=== PATIENT | female | born 1940 | race Two or more races ===

== ENCOUNTER → 2019-12-26 | Outpatient (CLI) | payer OTHER ==
[2019-12-26 10:08] LABS: Basophils # (auto) 0 10 ^3/uL (0-0.2); Basophils % (auto) 0.8 % (0.0-2.0); Eosinophils # (auto) 0.1 10 ^3/uL (0-0.8); Eosinophils % (auto) 1.9 % (0.0-7.0); Hematocrit 36.2 % (36.0-46.0); Hemoglobin 12.4 g/dL (12.2-16.2); Lymphocytes % (auto) 40.6 % (10.0-50.0); Mean Corpuscular Hemoglobin 31.1 pg (28.0-32.0); Mean Corpuscular Hgb Conc. 34.3 g/dL (32.0-36.0); Mean Corpuscular Volume 90.6 fL (80.0-100.0); Monocytes # (auto) 0.4 10 ^3/uL (0-1.3); Monocytes % (auto) 8.4 % (0.0-12.0); Neutrophils # (auto) 2.4 10 ^3/uL (1.6-8.6); Neutrophils % (auto) 48.3 % (37.0-80.0); Nucleated Red Blood Cells % 0.1 %; Platelet Count (auto) 224 10^3/uL (140-450); Red Blood Cells 3.99 10^6/uL (4.0-5.20); Red Cell Distribution Width 13.8 % (11.8-14.3)
[2019-12-26 10:39] LABS: Albumin 3.4 g/dL (3.4-5.0); Calcium 8.9 mg/dL (8.5-10.1); Potassium 4.2 mmol/L (3.5-5.1)
[2019-12-26 10:44] LABS: BUN/Creatinine Ratio 15.1; Bilirubin, Total 0.7 mg/dL (0.2-1.0); Total Protein 7.6 g/dL (6.4-8.2)
[2019-12-28 09:13] LABS: Hepatitis B Surface Antibody Negative
[2019-12-28 09:46] LABS: Hepatitis A Total Antibody Positive
[2019-12-28 09:58] LABS: Hepatitis A Ab IgM Negative
[2019-12-28 09:59] LABS: Hepatitis B Core IgM Negative; Hepatitis B Core Total AB Negative; Hepatitis B Surface Antigen Negative (Negative); Hepatitis C Antibody Negative (Negative)
== END | disposition home or self-care (01) ==
LOC: LAB 09:36
PROVIDERS: ATTEND Internal Medicine
DX: Z92.89 Personal history of other medical treatment (principal)
CPT/HCPCS: 36415; 80053; 80061; 84439; 84443; 85025; 85652; 86704; 86705; 86706; 86708; 86709; 86803; 87340

== ENCOUNTER → 2020-01-24 | Outpatient (CLI) | payer OTHER ==
[2020-01-24 12:20] LABS: Urine Bacteria NONE SEEN /hpf (None Seen); Urine Blood Negative /uL (Negative); Urine Hyaline Cast FEW /lpf (0 - 2); Urine Mucus FEW (None Seen); Urine WBC <1 /hpf (0 - 5)
== END | disposition home or self-care (01) ==
LOC: LAB 12:09
PROVIDERS: ATTEND Internal Medicine
DX: Z09 Encounter for follow-up examination after completed treatment for conditions other than malignant neoplasm (principal); Z92.89 Personal history of other medical treatment
CPT/HCPCS: 81001

== ENCOUNTER 2020-06-13 14:16 | Emergency (ER) | payer OTHER ==
[~2020-06-13] VITALS: Ht 157.5 cm; Wt 72.6 kg
[2020-06-13] MEDS ORDERED: traMADol HCL 50 MG TAB PO ONE (15:45)
[2020-06-13 16:47] VITALS: BP 154/67
== END 2020-06-13 16:52 | disposition home or self-care (01) ==
LOC: ER 14:16
DX: M79.604 Pain in right leg (principal); R22.41 Localized swelling, mass and lump, right lower limb; I12.9 Hypertensive chronic kidney disease with stage 1 through stage 4 chronic kidney disease, or unspecified chronic kidney disease; N18.9 Chronic kidney disease, unspecified; J44.9 Chronic obstructive pulmonary disease, unspecified; E78.00 Pure hypercholesterolemia, unspecified; Z90.89 Acquired absence of other organs; Z90.49 Acquired absence of other specified parts of digestive tract; Z98.890 Other specified postprocedural states; Z87.891 Personal history of nicotine dependence
CPT/HCPCS: 93971

== ENCOUNTER → 2020-12-16 | Outpatient (CLI) | payer OTHER ==
[2020-12-16 10:54] LABS: Basophils # (auto) 0 10 ^3/uL (0-0.2); Basophils % (auto) 0.6 % (0.0-2.0); Eosinophils # (auto) 0.1 10 ^3/uL (0-0.8); Eosinophils % (auto) 2.4 % (0.0-7.0); Hematocrit 34.1 % (36.0-46.0); Hemoglobin 11.7 g/dL (12.2-16.2); Lymphocytes # (auto) 1.8 10 ^3/uL (0.4-5.4); Lymphocytes % (auto) 35.2 % (10.0-50.0); Mean Corpuscular Hemoglobin 30.6 pg (28.0-32.0); Mean Corpuscular Hgb Conc. 34.5 g/dL (32.0-36.0); Mean Corpuscular Volume 88.9 fL (80.0-100.0); Monocytes # (auto) 0.4 10 ^3/uL (0-1.3); Monocytes % (auto) 7.2 % (0.0-12.0); Neutrophils # (auto) 2.8 10 ^3/uL (1.6-8.6); Neutrophils % (auto) 54.6 % (37.0-80.0); Nucleated Red Blood Cells % 0.1 %; Platelet Count (auto) 252 10^3/uL (140-450); Red Blood Cells 3.83 10^6/uL (4.0-5.20); Red Cell Distribution Width 13.8 % (11.8-14.3); White Blood Cell 5.2 10^3/uL (4.4-10.8)
[2020-12-16 10:59] LABS: Urine Bacteria NONE SEEN /hpf (None Seen); Urine Blood Negative /uL (Negative); Urine Specific Gravity 1.016 (1.001-1.035); Urine WBC 1 /hpf (0 - 5)
[2020-12-16 11:45] LABS: Potassium 4.1 mmol/L (3.5-5.1)
[2020-12-16 12:05] LABS: Albumin 3.4 g/dL (3.4-5.0); BUN/Creatinine Ratio 15.8; Bilirubin, Total 0.5 mg/dL (0.2-1.0); Calcium 9.5 mg/dL (8.5-10.1); Total Protein 7.2 g/dL (6.4-8.2)
[2020-12-16 12:16] LABS: Free T4 (Free Thyroxine) 1.62 ng/dL (0.89-1.76)
== END | disposition home or self-care (01) ==
LOC: LAB 09:51
PROVIDERS: ATTEND Internal Medicine
DX: I10 Essential (primary) hypertension (principal); M25.50 Pain in unspecified joint
CPT/HCPCS: 36415; 80053; 80061; 81001; 82607; 84439; 84443; 84550; 85025; 85652; 86038; 86200; 86431

== ENCOUNTER → 2022-07-07 | Outpatient (CLI) | payer OTHER ==
[2022-07-07 13:14] LABS: Basophils # (auto) 0.1 10 ^3/uL (0-0.2); Basophils % (auto) 1.2 % (0.0-2.0); Eosinophils # (auto) 0.1 10 ^3/uL (0-0.8); Eosinophils % (auto) 1.5 % (0.0-7.0); Hemoglobin 11.4 g/dL (12.2-16.2); Lymphocytes # (auto) 1.5 10 ^3/uL (0.4-5.4); Lymphocytes % (auto) 33.2 % (10.0-50.0); Mean Corpuscular Hemoglobin 30.5 pg (28.0-32.0); Mean Corpuscular Hgb Conc. 33.6 g/dL (32.0-36.0); Mean Corpuscular Volume 90.8 fL (80.0-100.0); Monocytes # (auto) 0.3 10 ^3/uL (0-1.3); Monocytes % (auto) 7.2 % (0.0-12.0); Neutrophils # (auto) 2.5 10 ^3/uL (1.6-8.6); Neutrophils % (auto) 56.9 % (37.0-80.0); Red Blood Cells 3.74 10^6/uL (4.0-5.20); Red Cell Distribution Width 13.9 % (11.8-14.3); White Blood Cell 4.4 10^3/uL (4.4-10.8)
[2022-07-07 13:41] LABS: Albumin 2.9 g/dL (3.4-5.0); Calcium 9.4 mg/dL (8.5-10.1); Potassium 4.2 mmol/L (3.5-5.1); Uric Acid 4.4 mg/dL (2.6-6.0)
[2022-07-07 13:44] LABS: BUN/Creatinine Ratio 12.1; Bilirubin, Total 0.5 mg/dL (0.2-1.0); Total Protein 7.5 g/dL (6.4-8.2)
[2022-07-07 15:00] LABS: Free T4 (Free Thyroxine) 1.38 ng/dL (0.89-1.76)
[2022-07-07 15:01] LABS: Folate (Folic Acid) 18.98 ng/mL (5.38-24)
[2022-07-08 06:06] LABS: RPR Non Reactive (Non Reactive)
[2022-07-08 13:35] LABS: Urine Bacteria NONE SEEN /hpf (None Seen); Urine Blood Negative /uL (Negative); Urine Specific Gravity 1.011 (1.001-1.035); Urine WBC 1 /hpf (0 - 5)
== END | disposition home or self-care (01) ==
LOC: LAB 12:09
PROVIDERS: ATTEND Internal Medicine
DX: J44.9 Chronic obstructive pulmonary disease, unspecified (principal)
CPT/HCPCS: 36415; 80053; 80061; 81001; 82607; 82746; 84439; 84443; 84550; 85025; 85652; 86200; 86431; 86592

== ENCOUNTER → 2022-09-29 | Outpatient (CLI) | payer OTHER ==
[2022-09-29 16:10] LABS: Basophils # (auto) 0 10 ^3/uL (0-0.2); Basophils % (auto) 0.8 % (0.0-2.0); Eosinophils # (auto) 0.1 10 ^3/uL (0-0.8); Eosinophils % (auto) 1.9 % (0.0-7.0); Hematocrit 32.6 % (36.0-46.0); Lymphocytes # (auto) 1.5 10 ^3/uL (0.4-5.4); Lymphocytes % (auto) 33.4 % (10.0-50.0); Mean Corpuscular Hemoglobin 29.9 pg (28.0-32.0); Mean Corpuscular Hgb Conc. 33.7 g/dL (32.0-36.0); Mean Corpuscular Volume 88.8 fL (80.0-100.0); Monocytes # (auto) 0.4 10 ^3/uL (0-1.3); Monocytes % (auto) 9.5 % (0.0-12.0); Neutrophils # (auto) 2.5 10 ^3/uL (1.6-8.6); Neutrophils % (auto) 54.4 % (37.0-80.0); Nucleated Red Blood Cells % 0.1 %; Red Blood Cells 3.67 10^6/uL (4.0-5.20); Red Cell Distribution Width 14.7 % (11.8-14.3); White Blood Cell 4.5 10^3/uL (4.4-10.8)
[2022-09-29 16:50] LABS: Thyroid Stimulating Hormone 0.02 uIU/mL (0.358-3.74)
[2022-09-29 17:00] LABS: Free T4 (Free Thyroxine) 1.99 ng/dL (0.89-1.76)
== END | disposition home or self-care (01) ==
LOC: LAB 15:54
PROVIDERS: ATTEND Internal Medicine
DX: I10 Essential (primary) hypertension (principal); D64.9 Anemia, unspecified
CPT/HCPCS: 36415; 82607; 83540; 83550; 83615; 84439; 84443; 85025

== ENCOUNTER 2023-01-28 12:35 | Inpatient (IN) | payer OTHER ==
[~2023-01-28] VITALS: Ht 157.5 cm; Wt 65.7 kg
[2023-01-28] MEDS ORDERED: MORPHINE SULFATE INJ 2 MG/ml SYRG IV PRN ×2 (15:15)
[2023-01-28] MEDS ORDERED: ONDANSETRON HCL 4 MG/2 ML VIAL IV PRN (15:15)
[2023-01-28] MEDS ORDERED: NITROGLYCERIN 0.4 MG SL TAB SL PRN (15:15)
[2023-01-28 16:18] LABS: INR 0.98 (0.9-1.15)
[2023-01-28 16:53] LABS: Basophils # (auto) 0 10 ^3/uL (0-0.2); Basophils % (auto) 0.2 % (0.0-2.0); Eosinophils # (auto) 0.1 10 ^3/uL (0-0.8); Eosinophils % (auto) 0.9 % (0.0-7.0); Hematocrit 26.9 % (36.0-46.0); Hemoglobin 9.2 g/dL (12.2-16.2); Lymphocytes # (auto) 1.7 10 ^3/uL (0.4-5.4); Lymphocytes % (auto) 26.2 % (10.0-50.0); Mean Corpuscular Hemoglobin 28.4 pg (28.0-32.0); Mean Corpuscular Hgb Conc. 34.4 g/dL (32.0-36.0); Mean Corpuscular Volume 82.4 fL (80.0-100.0); Monocytes # (auto) 0.7 10 ^3/uL (0-1.3); Monocytes % (auto) 10.7 % (0.0-12.0); Nucleated Red Blood Cells % 0.3 %; Red Blood Cells 3.26 10^6/uL (4.0-5.20); Red Cell Distribution Width 15.7 % (11.8-14.3); White Blood Cell 6.4 10^3/uL (4.4-10.8)
[2023-01-28 19:43] LABS: Basophils # (auto) 0 10 ^3/uL (0-0.2); Basophils % (auto) 0.5 % (0.0-2.0); Eosinophils # (auto) 0.1 10 ^3/uL (0-0.8); Eosinophils % (auto) 1.1 % (0.0-7.0); Lymphocytes # (auto) 1.6 10 ^3/uL (0.4-5.4); Lymphocytes % (auto) 21.2 % (10.0-50.0); Mean Corpuscular Hemoglobin 27.6 pg (28.0-32.0); Mean Corpuscular Hgb Conc. 33.3 g/dL (32.0-36.0); Mean Corpuscular Volume 82.9 fL (80.0-100.0); Monocytes # (auto) 0.6 10 ^3/uL (0-1.3); Monocytes % (auto) 7.6 % (0.0-12.0); Neutrophils # (auto) 5.4 10 ^3/uL (1.6-8.6); Neutrophils % (auto) 69.6 % (37.0-80.0); Nucleated Red Blood Cells % 0.1 %; Red Blood Cells 3.61 10^6/uL (4.0-5.20); Red Cell Distribution Width 15.7 % (11.8-14.3); White Blood Cell 7.7 10^3/uL (4.4-10.8)
[2023-01-28] MEDS: HEPARIN DRIP/D5W 100UNITS/ML 250 ML IV SCH (19:43)
[2023-01-28 19:44] LABS: Urine Bacteria NONE SEEN /hpf (None Seen); Urine Blood Negative /uL (Negative); Urine Specific Gravity 1.015 (1.001-1.035); Urine WBC 14 /hpf (0 - 5)
[2023-01-28 19:59] LABS: INR 0.97 (0.9-1.15)
[2023-01-28 20:00] VITALS: BP 147/79
[2023-01-28] MEDS: GABAPENTIN 300 MG CAP PO SCH (21:13)
[2023-01-28] MEDS ORDERED: APIXABAN 5 MG TAB PO SCH ×2 (22:00)
[2023-01-29 02:14] LABS: INR 0.99 (0.9-1.15); Partial Thromboplastin Time 50.4 sec (24.6-33.4)
[2023-01-29 05:00] VITALS: BP 154/64
[2023-01-29 05:38] LABS: Basophils # (auto) 0 10 ^3/uL (0-0.2); Basophils % (auto) 0.3 % (0.0-2.0); Eosinophils # (auto) 0 10 ^3/uL (0-0.8); Eosinophils % (auto) 0.5 % (0.0-7.0); Hematocrit 29.4 % (36.0-46.0); Hemoglobin 9.8 g/dL (12.2-16.2); Lymphocytes # (auto) 1.2 10 ^3/uL (0.4-5.4); Lymphocytes % (auto) 15.1 % (10.0-50.0); Mean Corpuscular Hemoglobin 27.5 pg (28.0-32.0); Mean Corpuscular Hgb Conc. 33.2 g/dL (32.0-36.0); Mean Corpuscular Volume 82.7 fL (80.0-100.0); Monocytes # (auto) 0.7 10 ^3/uL (0-1.3); Monocytes % (auto) 8.9 % (0.0-12.0); Neutrophils # (auto) 5.9 10 ^3/uL (1.6-8.6); Neutrophils % (auto) 75.2 % (37.0-80.0); Nucleated Red Blood Cells % 0.1 %; Red Blood Cells 3.56 10^6/uL (4.0-5.20); Red Cell Distribution Width 15.6 % (11.8-14.3); White Blood Cell 7.8 10^3/uL (4.4-10.8)
[2023-01-29 05:42] LABS: % Iron Saturation 5.8 % (15-50)
[2023-01-29 05:45] LABS: Albumin 2.4 g/dL (3.4-5.0); Calcium 8.8 mg/dL (8.5-10.1)
[2023-01-29 05:51] LABS: BUN/Creatinine Ratio 17.3 (10.0-20.0); Bilirubin, Total 0.6 mg/dL (0.2-1.0)
[2023-01-29] MEDS: GABAPENTIN 300 MG CAP PO SCH ×3 (06:21→21:30)
[2023-01-29] MEDS ORDERED: LEVOTHYROXINE SODIUM 50 MCG TAB PO SCH (07:00)
[2023-01-29 11:18] LABS: INR 1.02 (0.9-1.15)
[2023-01-29 12:00] VITALS: BP 129/57
[2023-01-29 14:52] LABS: INR 1.03 (0.9-1.15); Partial Thromboplastin Time 54.7 sec (24.6-33.4)
[2023-01-29] MEDS: HEPARIN DRIP/D5W 100UNITS/ML 250 ML IV SCH (15:29)
[2023-01-29 16:00] VITALS: BP 122/58
[2023-01-29] MEDS: HYDROcodone-ACET 5/325MG TAB PO PRN (18:49)
[2023-01-29 20:00] VITALS: BP 114/57
[2023-01-29 22:00] VITALS: BP 114/57
[2023-01-29] MEDS ORDERED: cefTRIAXone 1GM/50ML D5W 50 ML IV ONE (23:30)
[2023-01-30 05:04] VITALS: BP 143/75
[2023-01-30 05:39] LABS: Basophils # (auto) 0.1 10 ^3/uL (0-0.2); Basophils % (auto) 0.6 % (0.0-2.0); Eosinophils # (auto) 0 10 ^3/uL (0-0.8); Eosinophils % (auto) 0.3 % (0.0-7.0); Hematocrit 33.2 % (36.0-46.0); Hemoglobin 11.1 g/dL (12.2-16.2); Lymphocytes # (auto) 1.3 10 ^3/uL (0.4-5.4); Lymphocytes % (auto) 12.9 % (10.0-50.0); Mean Corpuscular Hemoglobin 27.8 pg (28.0-32.0); Mean Corpuscular Hgb Conc. 33.4 g/dL (32.0-36.0); Mean Corpuscular Volume 83.3 fL (80.0-100.0); Monocytes # (auto) 1.1 10 ^3/uL (0-1.3); Monocytes % (auto) 10.4 % (0.0-12.0); Neutrophils # (auto) 7.7 10 ^3/uL (1.6-8.6); Neutrophils % (auto) 75.8 % (37.0-80.0); Nucleated Red Blood Cells % 0.1 %; Red Blood Cells 3.99 10^6/uL (4.0-5.20); Red Cell Distribution Width 15.4 % (11.8-14.3); White Blood Cell 10.2 10^3/uL (4.4-10.8)
[2023-01-30 05:53] LABS: INR 1.04 (0.9-1.15); Partial Thromboplastin Time 68.9 sec (24.6-33.4)
[2023-01-30 05:55] LABS: Potassium 4.4 mmol/L (3.5-5.1)
[2023-01-30] MEDS: GABAPENTIN 300 MG CAP PO SCH (06:08)
[2023-01-30] MEDS: LEVOTHYROXINE SODIUM 112 MCG TAB PO SCH (06:08)
[2023-01-30] MEDS: LEVOTHYROXINE SODIUM 25 MCG TAB PO SCH (06:08)
[2023-01-30 06:13] LABS: BUN/Creatinine Ratio 13.9 (10.0-20.0); Calcium 8.5 mg/dL (8.5-10.1)
[2023-01-30] MEDS ORDERED: IOHEXOL 300 MG/ML 100ML BOTTLE IJ ONE (08:32)
[2023-01-30 09:00] VITALS: BP 120/51
[2023-01-30] MEDS ORDERED: cefTRIAXone 1GM/50ML D5W 50 ML IV SCH ×2 (09:00→12:00)
[2023-01-30] MEDS: HYDROcodone-ACET 5/325MG TAB PO PRN ×2 (11:29→19:21)
[2023-01-30 13:00] VITALS: BP 109/55
[2023-01-30 16:45] VITALS: BP 108/57
[2023-01-30] MEDS: SODIUM CHLORIDE 0.9% 1,000 ML IV SCH (17:30)
[2023-01-30] MEDS: HEPARIN DRIP/D5W 100UNITS/ML 250 ML IV SCH (17:30)
[2023-01-30] MEDS ORDERED: levoFLOXacin 500MG 100 ML IV ONE (18:45)
[2023-01-30 22:00] VITALS: BP 109/57
[2023-01-31] MEDS: SODIUM CHLORIDE 0.9% 1,000 ML IV SCH ×2 (04:25→21:05)
[2023-01-31 05:00] VITALS: BP 122/49
[2023-01-31 05:31] LABS: Basophils # (auto) 0 10 ^3/uL (0-0.2); Basophils % (auto) 0.2 % (0.0-2.0); Eosinophils # (auto) 0.2 10 ^3/uL (0-0.8); Eosinophils % (auto) 2.4 % (0.0-7.0); Hematocrit 27.7 % (36.0-46.0); Hemoglobin 9.3 g/dL (12.2-16.2); Lymphocytes # (auto) 1.1 10 ^3/uL (0.4-5.4); Lymphocytes % (auto) 12.5 % (10.0-50.0); Mean Corpuscular Hemoglobin 27.7 pg (28.0-32.0); Mean Corpuscular Hgb Conc. 33.6 g/dL (32.0-36.0); Mean Corpuscular Volume 82.6 fL (80.0-100.0); Monocytes # (auto) 0.8 10 ^3/uL (0-1.3); Monocytes % (auto) 9.3 % (0.0-12.0); Neutrophils # (auto) 6.5 10 ^3/uL (1.6-8.6); Neutrophils % (auto) 75.6 % (37.0-80.0); Nucleated Red Blood Cells % 0.1 %; Red Blood Cells 3.36 10^6/uL (4.0-5.20); Red Cell Distribution Width 15.6 % (11.8-14.3); White Blood Cell 8.6 10^3/uL (4.4-10.8)
[2023-01-31 05:37] LABS: Potassium 4.3 mmol/L (3.5-5.1)
[2023-01-31 05:43] LABS: BUN/Creatinine Ratio 23.1 (10.0-20.0); Calcium 8.5 mg/dL (8.5-10.1)
[2023-01-31] MEDS: HYDROcodone-ACET 5/325MG TAB PO PRN ×2 (05:48→14:58)
[2023-01-31] MEDS: LEVOTHYROXINE SODIUM 25 MCG TAB PO SCH (06:10)
[2023-01-31] MEDS: LEVOTHYROXINE SODIUM 112 MCG TAB PO SCH (06:10)
[2023-01-31 06:25] LABS: INR 2.11 (0.9-1.15)
[2023-01-31 06:28] LABS: Partial Thromboplastin Time > 139.0 sec (24.6-33.4)
[2023-01-31] MEDS ORDERED: HEPARIN DRIP/D5W 100UNITS/ML 250 ML IV SCH (07:30)
[2023-01-31 08:00] VITALS: BP 115/51
[2023-01-31 09:00] VITALS: BP 115/51
[2023-01-31] MEDS: ACETAMINOPHEN 325 MG TAB PO PRN (09:52)
[2023-01-31] MEDS: levoFLOXacin 250MG 50 ML IV SCH (10:06)
[2023-01-31 13:00] VITALS: BP 137/50
[2023-01-31 15:13] LABS: INR 1.08 (0.9-1.15); Partial Thromboplastin Time 41.6 sec (24.6-33.4)
[2023-01-31] MEDS: HEPARIN DRIP/D5W 100UNITS/ML 250 ML IV SCH (15:43)
[2023-01-31 17:00] VITALS: BP 140/56
[2023-01-31] MEDS: DOCUSATE SOD 100 MG CAP PO PRN (18:00)
[2023-01-31 22:00] VITALS: BP 125/43
[2023-01-31 23:03] LABS: INR 1.02 (0.9-1.15)
[2023-02-01 05:00] VITALS: BP 143/81
[2023-02-01] MEDS: HYDROcodone-ACET 5/325MG TAB PO PRN (05:30)
[2023-02-01] MEDS: DOCUSATE SOD 100 MG CAP PO PRN ×2 (05:34→18:12)
[2023-02-01] MEDS: LEVOTHYROXINE SODIUM 112 MCG TAB PO SCH (06:12)
[2023-02-01] MEDS: LEVOTHYROXINE SODIUM 25 MCG TAB PO SCH (06:12)
[2023-02-01 06:44] LABS: BUN/Creatinine Ratio 20.7 (10.0-20.0); Potassium 3.6 mmol/L (3.5-5.1)
[2023-02-01 06:47] LABS: INR 1.03 (0.9-1.15); Partial Thromboplastin Time 62.3 sec (24.6-33.4)
[2023-02-01 08:00] VITALS: BP 143/66
[2023-02-01] MEDS: levoFLOXacin 250MG 50 ML IV SCH (08:17)
[2023-02-01] MEDS ORDERED: GADOTERATE MEG 10 MMOL/20ml INJ (0.5MMOL/ml) IV ONE (09:03)
[2023-02-01 12:00] VITALS: BP 162/63
[2023-02-01] MEDS: hydrALAZINE HCL 20 MG/ML VL IV PRN (12:52)
[2023-02-01 13:29] LABS: Basophils # (auto) 0 10 ^3/uL (0-0.2); Basophils % (auto) 0.3 % (0.0-2.0); Eosinophils # (auto) 0.1 10 ^3/uL (0-0.8); Hematocrit 29.2 % (36.0-46.0); Hemoglobin 9.7 g/dL (12.2-16.2); Lymphocytes # (auto) 0.7 10 ^3/uL (0.4-5.4); Lymphocytes % (auto) 11.1 % (10.0-50.0); Mean Corpuscular Hemoglobin 27.7 pg (28.0-32.0); Mean Corpuscular Hgb Conc. 33.2 g/dL (32.0-36.0); Mean Corpuscular Volume 83.6 fL (80.0-100.0); Monocytes # (auto) 0.7 10 ^3/uL (0-1.3); Monocytes % (auto) 10.1 % (0.0-12.0); Neutrophils % (auto) 77.5 % (37.0-80.0); Red Blood Cells 3.49 10^6/uL (4.0-5.20); Red Cell Distribution Width 16.1 % (11.8-14.3); White Blood Cell 6.5 10^3/uL (4.4-10.8)
[2023-02-01 13:45] LABS: INR 1.04 (0.9-1.15); Partial Thromboplastin Time 67.4 sec (24.6-33.4)
[2023-02-01 16:00] VITALS: BP 157/53
[2023-02-01] MEDS: AMPICILLIN & SULBACTAM SODIUM 3 GM in SODIUM CHL 0.9% 100 ML IV SCH ×2 (16:07→18:12)
[2023-02-01] MEDS: OXYCODONE W/ ACETAMINOPHEN 5/325MG TABLET PO PRN (16:07)
[2023-02-01] MEDS: HEPARIN DRIP/D5W 100UNITS/ML 250 ML IV SCH (17:01)
[2023-02-01 20:10] LABS: INR 1.04 (0.9-1.15)
[2023-02-01 20:54] LABS: Partial Thromboplastin Time 74.9 sec (24.6-33.4)
[2023-02-01 22:00] VITALS: BP 146/63
[2023-02-02] MEDS: AMPICILLIN & SULBACTAM SODIUM 3 GM in SODIUM CHL 0.9% 100 ML IV SCH ×3 (02:15→18:05)
[2023-02-02 05:00] VITALS: BP 142/64
[2023-02-02 05:19] LABS: Basophils # (auto) 0 10 ^3/uL (0-0.2); Basophils % (auto) 0.3 % (0.0-2.0); Eosinophils # (auto) 0 10 ^3/uL (0-0.8); Eosinophils % (auto) 0.4 % (0.0-7.0); Hematocrit 28.5 % (36.0-46.0); Hemoglobin 9.5 g/dL (12.2-16.2); Lymphocytes # (auto) 1.1 10 ^3/uL (0.4-5.4); Lymphocytes % (auto) 15.4 % (10.0-50.0); Mean Corpuscular Hemoglobin 27.3 pg (28.0-32.0); Mean Corpuscular Hgb Conc. 33.4 g/dL (32.0-36.0); Mean Corpuscular Volume 81.9 fL (80.0-100.0); Monocytes # (auto) 0.8 10 ^3/uL (0-1.3); Monocytes % (auto) 11.2 % (0.0-12.0); Neutrophils # (auto) 5.1 10 ^3/uL (1.6-8.6); Neutrophils % (auto) 72.7 % (37.0-80.0); Red Blood Cells 3.48 10^6/uL (4.0-5.20); Red Cell Distribution Width 15.8 % (11.8-14.3)
[2023-02-02 05:31] LABS: Potassium 3.3 mmol/L (3.5-5.1)
[2023-02-02 05:36] LABS: BUN/Creatinine Ratio 20.3 (10.0-20.0)
[2023-02-02] MEDS: LEVOTHYROXINE SODIUM 25 MCG TAB PO SCH (06:50)
[2023-02-02] MEDS: LEVOTHYROXINE SODIUM 112 MCG TAB PO SCH (06:50)
[2023-02-02 08:00] VITALS: BP 157/75
[2023-02-02] MEDS ORDERED: HEPARIN DRIP/D5W 100UNITS/ML 250 ML IV SCH ×2 (08:45→09:30)
[2023-02-02] MEDS ORDERED: LACTULOSE 20Gm/30ML SOLN PO ONE (09:15)
[2023-02-02] MEDS ORDERED: POTASSIUM CHL 20 Meq TABLET PO ONE (09:15)
[2023-02-02] MEDS ORDERED: DOCUSATE SOD 100 MG CAP PO ONE (09:15)
[2023-02-02] MEDS: LISINOPRIL 20 MG TAB PO SCH (09:47)
[2023-02-02 12:00] VITALS: BP 168/66
[2023-02-02] MEDS: OXYCODONE W/ ACETAMINOPHEN 5/325MG TABLET PO PRN (12:31)
[2023-02-02] MEDS: hydrALAZINE HCL 20 MG/ML VL IV PRN (12:33)
[2023-02-02 16:00] VITALS: BP 157/85
[2023-02-02] MEDS: HEPARIN DRIP/D5W 100UNITS/ML 250 ML IV SCH ×2 (17:12→19:57)
[2023-02-02 22:00] VITALS: BP 146/64
[2023-02-03] MEDS: AMPICILLIN & SULBACTAM SODIUM 3 GM in SODIUM CHL 0.9% 100 ML IV SCH ×3 (02:20→18:22)
[2023-02-03 04:57] VITALS: BP 148/61
[2023-02-03 06:09] LABS: Basophils # (auto) 0 10 ^3/uL (0-0.2); Basophils % (auto) 0.3 % (0.0-2.0); Eosinophils # (auto) 0 10 ^3/uL (0-0.8); Eosinophils % (auto) 0.3 % (0.0-7.0); Hematocrit 29.4 % (36.0-46.0); Hemoglobin 9.8 g/dL (12.2-16.2); Lymphocytes # (auto) 1.5 10 ^3/uL (0.4-5.4); Lymphocytes % (auto) 22.2 % (10.0-50.0); Mean Corpuscular Hemoglobin 27.2 pg (28.0-32.0); Mean Corpuscular Hgb Conc. 33.3 g/dL (32.0-36.0); Mean Corpuscular Volume 81.8 fL (80.0-100.0); Monocytes # (auto) 0.7 10 ^3/uL (0-1.3); Monocytes % (auto) 10.3 % (0.0-12.0); Neutrophils # (auto) 4.5 10 ^3/uL (1.6-8.6); Neutrophils % (auto) 66.9 % (37.0-80.0); Nucleated Red Blood Cells % 0.1 %; Red Blood Cells 3.59 10^6/uL (4.0-5.20); Red Cell Distribution Width 16.2 % (11.8-14.3); White Blood Cell 6.7 10^3/uL (4.4-10.8)
[2023-02-03 06:13] LABS: INR 0.99 (0.9-1.15)
[2023-02-03 06:29] LABS: BUN/Creatinine Ratio 18.6 (10.0-20.0); Calcium 9.2 mg/dL (8.5-10.1)
[2023-02-03 06:48] LABS: Potassium 2.9 mmol/L (3.5-5.1)
[2023-02-03] MEDS: LEVOTHYROXINE SODIUM 112 MCG TAB PO SCH (07:00)
[2023-02-03] MEDS: LEVOTHYROXINE SODIUM 25 MCG TAB PO SCH (07:34)
[2023-02-03] MEDS ORDERED: POTASSIUM CHL 20 Meq TABLET PO ONE ×2 (07:45→10:00)
[2023-02-03 08:30] VITALS: BP 133/67
[2023-02-03] MEDS: LISINOPRIL 20 MG TAB PO SCH (09:07)
[2023-02-03 13:10] VITALS: BP 134/64
[2023-02-03 16:44] VITALS: BP 145/69
[2023-02-03 22:00] VITALS: BP 131/61
[2023-02-04] MEDS: AMPICILLIN & SULBACTAM SODIUM 3 GM in SODIUM CHL 0.9% 100 ML IV SCH (02:28)
[2023-02-04 05:00] VITALS: BP 151/63
[2023-02-04 05:38] LABS: Basophils # (auto) 0 10 ^3/uL (0-0.2); Basophils % (auto) 0.4 % (0.0-2.0); Eosinophils # (auto) 0.1 10 ^3/uL (0-0.8); Eosinophils % (auto) 1.1 % (0.0-7.0); Hematocrit 28.2 % (36.0-46.0); Hemoglobin 9.2 g/dL (12.2-16.2); Lymphocytes # (auto) 1.7 10 ^3/uL (0.4-5.4); Mean Corpuscular Hemoglobin 27.1 pg (28.0-32.0); Mean Corpuscular Hgb Conc. 32.6 g/dL (32.0-36.0); Mean Corpuscular Volume 83.1 fL (80.0-100.0); Monocytes # (auto) 0.7 10 ^3/uL (0-1.3); Monocytes % (auto) 11.1 % (0.0-12.0); Neutrophils # (auto) 3.5 10 ^3/uL (1.6-8.6); Neutrophils % (auto) 59.4 % (37.0-80.0); Nucleated Red Blood Cells % 0.1 %; Red Cell Distribution Width 16.3 % (11.8-14.3); White Blood Cell 5.9 10^3/uL (4.4-10.8)
[2023-02-04 05:48] LABS: BUN/Creatinine Ratio 21.9 (10.0-20.0); Calcium 9.1 mg/dL (8.5-10.1); Potassium 3.8 mmol/L (3.5-5.1)
[2023-02-04] MEDS: hydrALAZINE HCL 20 MG/ML VL IV PRN (05:57)
[2023-02-04] MEDS: LEVOTHYROXINE SODIUM 25 MCG TAB PO SCH (06:53)
[2023-02-04] MEDS: LEVOTHYROXINE SODIUM 112 MCG TAB PO SCH (06:54)
[2023-02-04 08:00] VITALS: BP 154/69
[2023-02-04 09:34] VITALS: BP 154/69
[2023-02-04] MEDS ORDERED: KETOROLAC TROMETH 30 MG/ML 1ML VIAL IV ONE (10:00)
[2023-02-04] MEDS ORDERED: levoFLOXacin 500 MG TAB PO ONE (10:00)
[2023-02-04] MEDS ORDERED: HYDR-4902 PO ×2 (10:10)
[2023-02-04] MEDS ORDERED: LEVO500T31 PO ×2 (10:10)
[2023-02-04] MEDS: LISINOPRIL 20 MG TAB PO SCH (10:38)
[2023-02-04 13:00] VITALS: BP 113/61
[2023-02-04 17:00] VITALS: BP 124/78
[2023-02-04 22:00] VITALS: BP 135/63
[2023-02-05 05:00] VITALS: BP 139/58
[2023-02-05] MEDS: LEVOTHYROXINE SODIUM 25 MCG TAB PO SCH (07:05)
[2023-02-05] MEDS: LEVOTHYROXINE SODIUM 112 MCG TAB PO SCH (07:05)
[2023-02-05 09:00] VITALS: BP 135/77
[2023-02-05] MEDS ORDERED: levoFLOXacin 250MG 50 ML IV SCH (10:00)
[2023-02-05] MEDS: LISINOPRIL 20 MG TAB PO SCH (10:45)
[2023-02-05] MEDS: levoFLOXacin 250 MG TAB PO SCH (10:45)
[2023-02-05] MEDS ORDERED: SODIUM FERR GLUC 62.5MG/5ML 125 MG in SODIUM CHL 0.9% 100 ML IV SCH (12:00)
[2023-02-05] MEDS ORDERED: SODIUM FERR GLUC 62.5MG/5ML 125 MG in SODIUM CHL 0.9% 100 ML IV ONE (12:00)
[2023-02-05 13:00] VITALS: BP 151/64
[2023-02-05] MEDS: IRON SUCROSE COMPLEX 200 MG in SODIUM CHL 0.9% 100 ML IV SCH (15:38)
[2023-02-05 17:00] VITALS: BP 147/57
[2023-02-05 22:00] VITALS: BP 127/56
[2023-02-06 05:00] VITALS: BP 132/54
[2023-02-06 05:45] LABS: Calcium 9.1 mg/dL (8.5-10.1); Potassium 3.5 mmol/L (3.5-5.1)
[2023-02-06 06:22] LABS: Basophils # (auto) 0 10 ^3/uL (0-0.2); Basophils % (auto) 0.3 % (0.0-2.0); Eosinophils # (auto) 0.1 10 ^3/uL (0-0.8); Eosinophils % (auto) 0.8 % (0.0-7.0); Hematocrit 30.6 % (36.0-46.0); Hemoglobin 10.4 g/dL (12.2-16.2); Lymphocytes # (auto) 1.8 10 ^3/uL (0.4-5.4); Lymphocytes % (auto) 19.8 % (10.0-50.0); Mean Corpuscular Hgb Conc. 33.8 g/dL (32.0-36.0); Mean Corpuscular Volume 82.8 fL (80.0-100.0); Monocytes # (auto) 0.7 10 ^3/uL (0-1.3); Monocytes % (auto) 8.1 % (0.0-12.0); Neutrophils # (auto) 6.3 10 ^3/uL (1.6-8.6); Nucleated Red Blood Cells % 0.1 %; Red Cell Distribution Width 16.1 % (11.8-14.3); White Blood Cell 8.9 10^3/uL (4.4-10.8)
[2023-02-06] MEDS: LEVOTHYROXINE SODIUM 25 MCG TAB PO SCH (06:34)
[2023-02-06] MEDS: LEVOTHYROXINE SODIUM 112 MCG TAB PO SCH (06:34)
[2023-02-06 07:30] VITALS: BP 135/77
[2023-02-06 09:00] VITALS: BP 127/57
[2023-02-06] MEDS: levoFLOXacin 250 MG TAB PO SCH (09:50)
[2023-02-06] MEDS: LISINOPRIL 20 MG TAB PO SCH (09:50)
[2023-02-06] MEDS ORDERED: ENOXAPARIN SOD 40 MG/0.4 ML SYRINGE SC SCH (10:00)
[2023-02-06 13:15] VITALS: BP 138/56
[2023-02-06 17:00] VITALS: BP 92/60
[2023-02-06] MEDS: IRON SUCROSE COMPLEX 200 MG in SODIUM CHL 0.9% 100 ML IV SCH (18:43)
[2023-02-06 22:00] VITALS: BP 118/57
[2023-02-07 05:00] VITALS: BP 116/60
[2023-02-07] MEDS: LEVOTHYROXINE SODIUM 25 MCG TAB PO SCH (06:22)
[2023-02-07] MEDS: LEVOTHYROXINE SODIUM 112 MCG TAB PO SCH (06:22)
[2023-02-07 09:42] VITALS: BP 116/35
[2023-02-07] MEDS: LISINOPRIL 20 MG TAB PO SCH (11:04)
[2023-02-07] MEDS: levoFLOXacin 250 MG TAB PO SCH (11:05)
[2023-02-07 13:45] VITALS: BP 109/64
[2023-02-07] MEDS: SODIUM FERR GLUC 62.5MG/5ML 125 MG in SODIUM CHL 0.9% 100 ML IV SCH (15:06)
[2023-02-07 16:33] VITALS: BP 114/53
[2023-02-07 22:00] VITALS: BP 129/65
[2023-02-08 05:00] VITALS: BP 141/57
[2023-02-08 06:11] LABS: Calcium 8.6 mg/dL (8.5-10.1); Potassium 3.9 mmol/L (3.5-5.1)
[2023-02-08 06:13] LABS: BUN/Creatinine Ratio 17.9 (10.0-20.0)
[2023-02-08] MEDS: LEVOTHYROXINE SODIUM 25 MCG TAB PO SCH (06:23)
[2023-02-08] MEDS: LEVOTHYROXINE SODIUM 112 MCG TAB PO SCH (06:23)
[2023-02-08 06:27] LABS: Hemoglobin 9.1 g/dL (12.2-16.2); Mean Corpuscular Hgb Conc. 33.7 g/dL (32.0-36.0); Mean Corpuscular Volume 83.1 fL (80.0-100.0); Red Blood Cells 3.25 10^6/uL (4.0-5.20); Red Cell Distribution Width 16.2 % (11.8-14.3); White Blood Cell 8.6 10^3/uL (4.4-10.8)
[2023-02-08 06:51] LABS: Band Neutrophils % (manual) 0; Basophils % (manual) 0 (0.0-2.0); Blast Cells 0; Eosinophils % (manual) 0 (0-7); Metamyelocytes % 0; Myelocytes % 0; Promyelocytes % 0; Reactive Lymphocytes 0
[2023-02-08 08:42] LABS: Lymphocytes % (manual) 26 (10.0-50.0); Monocytes % (manual) 9 (0-12)
[2023-02-08 09:00] VITALS: BP 135/55
[2023-02-08] MEDS: LISINOPRIL 20 MG TAB PO SCH (09:17)
[2023-02-08] MEDS: levoFLOXacin 250 MG TAB PO SCH (09:17)
[2023-02-08 13:00] VITALS: BP 120/52
[2023-02-08] MEDS: SODIUM FERR GLUC 62.5MG/5ML 125 MG in SODIUM CHL 0.9% 100 ML IV SCH (13:18)
[2023-02-08 16:33] VITALS: BP 107/46
[2023-02-08 22:00] VITALS: BP 130/62
[2023-02-09 05:00] VITALS: BP 133/68
[2023-02-09] MEDS: LEVOTHYROXINE SODIUM 112 MCG TAB PO SCH (06:29)
[2023-02-09] MEDS: LEVOTHYROXINE SODIUM 25 MCG TAB PO SCH (06:29)
[2023-02-09 09:00] VITALS: BP 146/72
[2023-02-09] MEDS ORDERED: metroNIDAZOLE 500 MG TAB PO ONE (10:00)
[2023-02-09] MEDS: LISINOPRIL 20 MG TAB PO SCH (10:38)
[2023-02-09] MEDS: FLORASTOR (S. BOULARDII) 250 MG CAP PO SCH (10:40)
[2023-02-09 12:05] LABS: Basophils # (auto) 0.1 10 ^3/uL (0-0.2); Basophils % (auto) 0.5 % (0.0-2.0); Eosinophils # (auto) 0.1 10 ^3/uL (0-0.8); Eosinophils % (auto) 0.4 % (0.0-7.0); Hematocrit 29.6 % (36.0-46.0); Hemoglobin 9.7 g/dL (12.2-16.2); Lymphocytes % (auto) 6.8 % (10.0-50.0); Mean Corpuscular Hemoglobin 27.3 pg (28.0-32.0); Mean Corpuscular Hgb Conc. 32.9 g/dL (32.0-36.0); Mean Corpuscular Volume 82.8 fL (80.0-100.0); Monocytes # (auto) 0.7 10 ^3/uL (0-1.3); Monocytes % (auto) 4.5 % (0.0-12.0); Neutrophils # (auto) 13.5 10 ^3/uL (1.6-8.6); Neutrophils % (auto) 87.8 % (37.0-80.0); Nucleated Red Blood Cells % 0.1 %; Red Blood Cells 3.57 10^6/uL (4.0-5.20); Red Cell Distribution Width 16.7 % (11.8-14.3); White Blood Cell 15.4 10^3/uL (4.4-10.8)
[2023-02-09 12:42] LABS: Albumin 2.2 g/dL (3.4-5.0); BUN/Creatinine Ratio 12.8 (10.0-20.0); Bilirubin, Total 0.4 mg/dL (0.2-1.0); Calcium 8.6 mg/dL (8.5-10.1); Potassium 3.6 mmol/L (3.5-5.1); Total Protein 6.6 g/dL (6.4-8.2)
[2023-02-09 13:00] VITALS: BP 126/73
[2023-02-09] MEDS: metroNIDAZOLE 500 MG TAB PO SCH ×2 (14:20→21:36)
[2023-02-09] MEDS ORDERED: SODIUM CHLORIDE 0.9% 1,000 ML IV SCH (16:15)
[2023-02-09 17:00] VITALS: BP 113/53
[2023-02-09] MEDS: ACETAMINOPHEN 325 MG TAB PO PRN (17:18)
[2023-02-09 18:11] LABS: Urine Bacteria FEW /hpf (None Seen); Urine Blood Negative /uL (Negative); Urine Specific Gravity 1.013 (1.001-1.035); Urine WBC 4 /hpf (0 - 5)
[2023-02-09 20:00] VITALS: BP 102/44
[2023-02-09 22:00] VITALS: BP 102/44
[2023-02-10 05:00] VITALS: BP 113/42
[2023-02-10 05:45] LABS: Basophils # (auto) 0.1 10 ^3/uL (0-0.2); Basophils % (auto) 0.8 % (0.0-2.0); Eosinophils # (auto) 0.1 10 ^3/uL (0-0.8); Eosinophils % (auto) 0.7 % (0.0-7.0); Hematocrit 28.1 % (36.0-46.0); Hemoglobin 9.4 g/dL (12.2-16.2); Lymphocytes # (auto) 1.4 10 ^3/uL (0.4-5.4); Lymphocytes % (auto) 8.7 % (10.0-50.0); Mean Corpuscular Hemoglobin 27.8 pg (28.0-32.0); Mean Corpuscular Hgb Conc. 33.4 g/dL (32.0-36.0); Mean Corpuscular Volume 83.2 fL (80.0-100.0); Monocytes # (auto) 0.8 10 ^3/uL (0-1.3); Neutrophils # (auto) 13.6 10 ^3/uL (1.6-8.6); Neutrophils % (auto) 84.8 % (37.0-80.0); Nucleated Red Blood Cells % 0.1 %; Red Blood Cells 3.38 10^6/uL (4.0-5.20); Red Cell Distribution Width 16.5 % (11.8-14.3)
[2023-02-10] MEDS: metroNIDAZOLE 500 MG TAB PO SCH ×3 (06:20→21:49)
[2023-02-10] MEDS: LEVOTHYROXINE SODIUM 112 MCG TAB PO SCH (06:20)
[2023-02-10] MEDS: LEVOTHYROXINE SODIUM 25 MCG TAB PO SCH (06:21)
[2023-02-10 07:18] LABS: Potassium 3.2 mmol/L (3.5-5.1)
[2023-02-10 07:19] LABS: BUN/Creatinine Ratio 15.4 (10.0-20.0); Calcium 8.8 mg/dL (8.5-10.1)
[2023-02-10 09:44] VITALS: BP 105/48
[2023-02-10] MEDS: SODIUM CHLORIDE 0.9% 1,000 ML IV SCH (09:45)
[2023-02-10] MEDS ORDERED: POTASSIUM CHL 20 Meq TABLET PO ONE (09:45)
[2023-02-10] MEDS: LISINOPRIL 20 MG TAB PO SCH (10:00)
[2023-02-10] MEDS: FLORASTOR (S. BOULARDII) 250 MG CAP PO SCH (11:13)
[2023-02-10 13:02] VITALS: BP 106/83
[2023-02-10 16:53] VITALS: BP 94/36
[2023-02-10 20:00] VITALS: BP 117/55
[2023-02-10 22:00] VITALS: BP 117/55
[2023-02-11] MEDS: SODIUM CHLORIDE 0.9% 1,000 ML IV SCH ×2 (00:11→12:44)
[2023-02-11 05:00] VITALS: BP 103/59
[2023-02-11 05:16] LABS: Basophils # (auto) 0.1 10 ^3/uL (0-0.2); Eosinophils # (auto) 0.2 10 ^3/uL (0-0.8); Eosinophils % (auto) 2.3 % (0.0-7.0); Hemoglobin 9.1 g/dL (12.2-16.2); Lymphocytes # (auto) 1.4 10 ^3/uL (0.4-5.4); Lymphocytes % (auto) 14.3 % (10.0-50.0); Mean Corpuscular Hemoglobin 27.9 pg (28.0-32.0); Mean Corpuscular Hgb Conc. 33.7 g/dL (32.0-36.0); Mean Corpuscular Volume 82.8 fL (80.0-100.0); Monocytes # (auto) 0.6 10 ^3/uL (0-1.3); Monocytes % (auto) 5.9 % (0.0-12.0); Neutrophils # (auto) 7.5 10 ^3/uL (1.6-8.6); Neutrophils % (auto) 76.5 % (37.0-80.0); Nucleated Red Blood Cells % 0.1 %; Red Blood Cells 3.26 10^6/uL (4.0-5.20); Red Cell Distribution Width 16.6 % (11.8-14.3); White Blood Cell 9.8 10^3/uL (4.4-10.8)
[2023-02-11 05:37] LABS: BUN/Creatinine Ratio 19.8 (10.0-20.0); Calcium 8.9 mg/dL (8.5-10.1); Magnesium 1.9 mg/dL (1.6-2.6); Potassium 3.4 mmol/L (3.5-5.1)
[2023-02-11] MEDS: LEVOTHYROXINE SODIUM 25 MCG TAB PO SCH (06:27)
[2023-02-11] MEDS: LEVOTHYROXINE SODIUM 112 MCG TAB PO SCH (06:27)
[2023-02-11] MEDS: metroNIDAZOLE 500 MG TAB PO SCH ×2 (06:27→14:00)
[2023-02-11 09:00] VITALS: BP 127/57
[2023-02-11] MEDS ORDERED: POTASSIUM CHL 20 Meq TABLET PO ONE (09:45)
[2023-02-11] MEDS ORDERED: METR-344 PO (09:51)
[2023-02-11] MEDS ORDERED: LEVO750T8 PO (09:52)
[2023-02-11] MEDS: FLORASTOR (S. BOULARDII) 250 MG CAP PO SCH (11:07)
[2023-02-11] MEDS: LISINOPRIL 20 MG TAB PO SCH (11:07)
[2023-02-11 11:08] VITALS: BP 127/57
[2023-02-11 13:00] VITALS: BP 106/43
[2023-02-11 16:57] VITALS: BP 120/47
[2023-02-11 20:00] VITALS: BP 112/67
== END 2023-02-11 21:10 | disposition home or self-care (01) | DRG 872 ==
LOC: TELE-CENTR 14:20 → CENTRAL 02-08 22:26
PROVIDERS: ADMIT Internal Medicine; ATTEND Internal Medicine
DX: A41.9 Sepsis, unspecified organism (principal); E44.0 Moderate protein-calorie malnutrition; N39.0 Urinary tract infection, site not specified; D64.9 Anemia, unspecified; E03.9 Hypothyroidism, unspecified; G62.9 Polyneuropathy, unspecified; M70.71 Other bursitis of hip, right hip; I10 Essential (primary) hypertension; K59.00 Constipation, unspecified; Z68.28 Body mass index [BMI] 28.0-28.9, adult; Z90.49 Acquired absence of other specified parts of digestive tract; Z87.891 Personal history of nicotine dependence
CPT/HCPCS: 36415; 70450; 71045; 72158; 73721; 74177; 76775; 80048; 80053; 81001; 83540; 83550; 83735; 84443; 85007; 85025; 85027; 85610; 85730; 87040; 87086; 87088; 87493; 93970; 97110; 97116; 97163; 97530; G0378; J0696; J1756; J1885; J1956; J2405

== ENCOUNTER 2025-07-04 14:46 | Emergency (ER) | payer OTHER ==
[~2025-07-04] VITALS: Ht 154.9 cm; Wt 65.0 kg
[~2025-07-04 14:46] MED LIST: LEVO750T8 PO; METR-344 PO
[2025-07-04 14:47] VITALS: BP 150/125; PULSE 75; RESP 15; O2SAT 96
--- NOTE | 2025-07-04 16:32 | ED.PDOC ---
Musculoskeletal HPI Comments A 84 YEAR OLD FEMALE PRESENTS TO THE ED WITH COMPLAINT OF UPPER EXTREMITY PAIN. PT HAS BEEN HAVING R WRIST PAIN FOR THE PAST 3X DAYS. PT DENIES ANY ASSOCIATED TRAUMA OR FALL INJURY. PT HAS HX OF GOUT AND DOES NOT TAKE GOUT MEDICATION. PATIENT DENIES FEVER, CHILLS, SHORTNESS OF BREATH, CHEST PAIN, ABDOMINAL PAIN, NAUSEA, VOMITING, HEADACHE, OR OTHER COMPLAINTS. NO OTHER SYMPTOMS OR MODIFYING FACTORS AT THIS TIME. PATIENT IS ALERT, ORIENTED X 4, AND HAS STEADY GAIT. Chief Complaint: Upper Extremity Time Seen by MD: 16:29 Reviewed Notes: Nurses Notes, Medications, Allergies Allergies: Coded Allergies: Morphine (Verified Adverse Reaction, Unknown, confusion, lethargic , 02/01/23) Home Meds Active Scripts Levofloxacin (Levaquin 750 mg) 750 Mg Tab, 500 MG PO DAILY for 5 Days, #5 TAB Prov:CONSUELO SPEARS MD 02/11/23 Metronidazole (Flagyl) 500 Mg Tab, 500 MG PO TID for 7 Days, #21 TAB Prov:CONSUELO SPEARS MD 02/11/23 Information Source: Patient Mode of Arrival: Ambulatory Brought in by: DAUGHTER Location: Right Extremity Location: Wrist Timing: Weeks Prehospital treatment: None Severity: Moderate Able to Move Extremity: Yes Bear Weight: Fully Pain: Moderate Hand Dominance: Right Mechanism: Spontaneous Circumstances: Other Onset of Symptoms: Spontaneous Symptoms: Swelling, Pain, Erythema DVT Risk Factors: NONE Last Tetanus: UTD Associated signs and symptoms: Wrist pain Past Medical History PAST MEDICAL HISTORY: Arthritis, CKF, COPD, High Lipids, HTN, Thyroid Surgical History: Appendectomy, BTL, Cholecystectomy, Tonsillectomy 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 Family History Family History: Reviewed,noncontributory to illness, Family hx of DM, Family hx of heart maldonado Family History (Other): seizures Social History Smoker: Quit Greater Than 1 Year, Cigarettes Alcohol: Rarely Drugs: Denies Drug Use Lives In: Home Constitutional: denies: chills, diaphoresis, fatigue, fever, malaise, sweats, weakness, others EENTM: denies: blurred vision, double vision, ear bleeding, ear discharge, ear drainage, ear pain, ear ringing, eye pain, eye redness, hearing loss, mouth pain, mouth swelling, nasal discharge, nose bleeding, nose congestion, nose pain, photophobia, tearing, throat pain, throat swelling, voice changes, others Respiratory: denies: cough, hemoptysis, orthopnea, SOB at rest, shortness of breath, SOB with excertion, stridor, wheezing, others Cardiovascular: denies: chest pain, dizzy spells, diaphoresis, Dyspnea on exertion, edema, irregular heart beat, left arm pain, lightheadedness, palpitations, PND, syncope, others Gastrointestinal: denies: abdomen distended, abdominal pain, blood streaked bowels, constipated, diarrhea, dysphagia, difficulty swallowing, hematemesis, melena, nausea, poor appetite, poor fluid intake, rectal bleeding, rectal pain, vomiting, others Genitourinary: denies: abnormal vagina bleeding, burning, dyspareunia, dysuria, flank pain, frequency, hematuria, incontinence, pain, , vagina discharge, urgency, others Neurological: denies: dizziness, fainting, headache, left sided numbness, left sided weakness, numbness, paresthesia, pre-existing deficit, right sided numbness, right sided weakness, seizure, speech problems, tingling, tremors, weakness, others Musculoskeletal: reports: joint pain (R WRIST), joint swelling; denies: back pain, gout, muscle pain, muscle stiffness, neck pain, others Integumetry: denies: bruises, change in color, change in hair/nails, dryness, laceration, lesions, lumps, rash, wounds, others Allergic/Immunocompromised: denies: Difficulty Healing, Frequent Infections, Hives, Itching, others Hematologic/Lymphatic: denies: anemia, blood clots, easy bleeding, easy bruising, swollen glands, others Endocrine: denies: excessive hunger, excessive sweating, excessive thirst, excessive urination, flushing, intolerance to cold, intolerance to heat, une xplained weight gain, unexplained weight loss, others Psychiatric: denies: anxiety, bipolar disorder, depression, hopeless, panic disorder, schizophrenia, sleepless, suicidal, others All Other Systems: Reviewed and Negative Physical Exam General Appearance: No Apparent Distress, Normal HEENT: Normal ENT Inspection, PERRL/EOMI, Pharynx Normal, TMs Normal Neck: Full Range of Motion, Non-Tender, Normal, Normal Inspection Respiratory: Chest Non-Tender, Lungs Clear, No Accessory Muscle Use, No Re spiratory Distress, Normal Breath Sounds Cardiovascular: No Edema, No JVD, No Murmur, No Gallop, Normal Peripheral Pulses, Regular Rate/Rhythm Breast Exam: Deferred Gastrointestinal: No Organomegaly, Non Tender, No Pulsatile Mass, Normal Bowel Sounds, Soft Genitalia: Deferred Pelvic: Deferred Rectal: Deferred Extremities: Decreased range of motion (SLIGHTLY. ), No calf tenderness, Normal capillary refill, No pedal edema, Swelling (LOCALIZED REDNESS, SWELLING AND HEAT ON RIGHT WRIST, NO BONY TENDERNESS AND DEFORMITY, NO INFECTION SIGNS. +GOUT. ), Tender (TENDERNESS AND SWELLING ON RIGHT WRIST. 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 Was a procedure done?: No Differential Diagnosis EXT Differential Diagnosis: Fracture, Sprain, Gout, DJD, Strain, Arthritis X-Ray, Labs, Meds, VS Vital Signs Date Time Temp Pulse Resp B/P (MAP) Pulse Ox O2 Delivery O2 Flow Rate FiO2 07/04/25 16:41 98.4 07/04/25 14:47 98.0 75 15 150/125 96 98.0 Current Medications Medications (Trade) Dose Ordered Sig/Garfield Route Start Time Stop Time Status Last Admin Acetaminophen (Tylenol Tablet Or Capsule) 1,000 mg ONCE ONCE PO 07/04/25 16:30 07/04/25 16:31 DC 07/04/25 16:41 Methylprednisolone Sodium Succinate (Solu Medrol) 125 mg ONCE ONCE IM 07/04/25 16:30 07/04/25 16:31 DC 07/04/25 16:47 X-Ray, Labs, Meds, VS Comment COURSE: EXTERNAL MEDICAL RECORDS REVIEWED: [NONE] INDEPENDENT HISTORIANS: [NONE] SOCIAL DETERMINANTS OF HEALTH: [NONE] LABS ORDERED: NONE REVIEWED AND INTERPRETED RESULTS: NONE IMAGING ORDERED: R WRIST X-RAY: DDD OF RIGHT WRIST, NO FX AND DISLOCATION. TREATMENTS ORDERED: PREDNISONE 125 MG, ACETAMINOPHEN 1 G, PROCEDURES PERFORMED: NONE CRITICAL CARE TIME: NONE I HAVE DISCUSSED THE PATIENT WITH THE ATTENDING PHYSICIAN, DR. ROSEN, HE AGREES WITH THE PATIENT'S PLAN OF CARE AND DISPOSITION. BASED ON HISTORY OF PRESENT ILLNESS, AND PHYSICAL EXAM, PATIENT WILL BE DISCHARGED HOME. DISCUSSED PLAN FOR DISCHARGE HOME WITH RX [TYLENOL AND PREDNISONE ]. MEDICATION WARNINGS GIVEN. SHARED DECISION MAKING: DISCUSSED WITH PATIENT THAT THEIR WORKUP WAS NORMAL. PATIENT INSTRUCTED TO FOLLOW UP WITH PRIMARY CARE PROVIDER IN 1-2 DAYS FOR RE- EVALUATION OF SYMPTOMS. PATIENT VERBALIZES UNDERSTANDING TO RETURN TO ED FOR NEW OR WORSENING SYMPTOMS OR IF FOLLOW UP WITH PCP CANNOT BE OBTAINED. PATIENT FEELS COMFORTABLE GOING HOME AT THIS TIME. ALL QUESTIONS ADDRESSED AT TIME OF DISCHARGE. Images Reviewed?: Images reviewed and evaluated by me Time of 1ST Reevaluation: 17:00 Reevaluation 1ST: Improved Patient Education/Counseling: Diagnosis, Treatment, Need For Follow Up Family Education/Counseling: Diagnosis, Treatment, Need For Follow Up Medical Screening: No EMC Exist At This Time Departure 1 Departure Time of Disposition: 17:00 Impression: Primary Impression: Acute gout of right wrist Qualified Codes: M10.9 - Gout, unspecified Disposition: HOME / SELF CARE / HOMELESS Condition: Stable Additional Instructions: INSTRUCTIONS: FOLLOW-UP WITH PCP IN 1 TO 2 DAYS. TAKE MEDICATIONS PRESCRIBED. RETURN TO ED FOR ANY NEW OR WORSENING SYMPTOMS. e-Prescriptions Acetaminophen (Tylenol 8 Hour Arthritis) 650 Mg Tab 650 MG PO TID, #30 TAB Prov: CAROL NAJERA 07/04/25 Prednisone (Prednisone) 20 Mg Tab 40 MG PO DAILY, #20 TAB Prov: CAROL NAJERA 07/04/25 Discharged With: Self, Relative Critical Care Note Critical Care Time?: No Stability Stability form required: No Heart Score Heart Score: Heart Score Response (Comments) Value History N/A 0 EKG N/A 0 Age N/A 0 Risk Factors N/A 0 Troponin N/A 0 Total 0 I personally scribed for CAROL NAJERA ([email or web address]) on 07/04/25 at 16:31. Electronically submitted by Isiah Cool ([email or web address]). CAROL NAJERA Jul 04, 2025 16:31
[2025-07-04 16:41] VITALS: TEMP 98.4
[2025-07-04] MEDS: ACETAMINOPHEN 500 MG TAB or CAP PO ONE (16:41)
[2025-07-04] MEDS: methylPREDNISolone SOD SUCC 125 MG/2 ML VL IM ONE (16:47)
[2025-07-04] MEDS ORDERED: PRED20TA2 PO (16:57)
[2025-07-04] MEDS ORDERED: ACET-1080 PO (16:57)
--- NOTE | 2025-07-04 17:42 | DVH ---
CLINICAL INDICATION: PAIN, HX OF GOUT TECHNIQUE: 3 radiographic views of the right wrist were obtained. Comparison: L WRIST COMPLETE XRAY on DOS: 06/12/22 FINDINGS/IMPRESSION: Arthritic changes are noted of the carpal radial carpal ulnar joint space carpometacarpal joint of th e thumb as well as distal inner phalangeal joint of the thumb. Destructive changes are noted styloid process of the ulna irregularity to the styloid process of the radius the carpal radial joint space. Findings may represent arthritis. Can not exclude acute injury without comparison studies
== END 2025-07-04 18:15 | disposition home or self-care (01) ==
LOC: ER 14:46
DX: M10.9 Gout, unspecified (principal); I10 Essential (primary) hypertension; J44.9 Chronic obstructive pulmonary disease, unspecified; Z88.5 Allergy status to narcotic agent; Z90.49 Acquired absence of other specified parts of digestive tract; Z90.89 Acquired absence of other organs; Z98.51 Tubal ligation status
CPT/HCPCS: 73110; 96372; 99283; J2919